=== PATIENT | female | born 1995 | race Caucasian/White ===

== ENCOUNTER 2022-01-01 18:18 | Emergency (ER) | payer OTHER ==
[2022-01-01 18:48] VITALS: BP 112/74; PULSE 81; RESP 18; TEMP 98.4; BMI 22.3
[2022-01-01] MEDS ORDERED: AMOX TR/POT CLAV 875MG/125MG TABLETS (FP) PO ONE (21:36)
[2022-01-01] MEDS ORDERED: BACITRACIN 15 GM TUBE TOPICAL OINTMENT ONE (21:41)
[2022-01-01] MEDS ORDERED: AMOX TR/POT CLAV 875MG/125MG TABLETS (FP) ONE (21:43)
== END 2022-01-01 21:48 | disposition home or self-care (01) ==
LOC: JERFT 18:18
DX: O9A.211 Injury, poisoning and certain other consequences of external causes complicating pregnancy, first trimester (principal); S61.051A Open bite of right thumb without damage to nail, initial encounter; W54.0XXA Bitten by dog, initial encounter; Z3A.13 13 weeks gestation of pregnancy
CPT/HCPCS: 73130-TC-RT-FY; 99283-25